=== PATIENT | female | born 1955 | race Caucasian/White ===

== ENCOUNTER 2016-05-09 16:21 | Outpatient (CLI) | payer BC ==
[2014-12-05 11:39] VITALS: BP 119/76
== END 2016-05-09 16:22 ==
LOC: LABRHC 16:21
PROVIDERS: ATTEND Family Medicine
DX: Z12.4 Encounter for screening for malignant neoplasm of cervix (principal)
CPT/HCPCS: 88148; G0143

== ENCOUNTER 2017-06-05 11:34 | Outpatient (CLI) | payer BC ==
[2014-12-05 11:39] VITALS: BP 119/76
[2017-06-05 12:21] LABS: eGFR (African) > 60; eGFR (Non-African) > 60
== END 2017-06-05 11:35 ==
LOC: LAB 11:34
PROVIDERS: ATTEND Family Medicine
DX: Z00.00 Encounter for general adult medical examination without abnormal findings (principal)
CPT/HCPCS: 36415; 80053; 80061